=== PATIENT | male | born 1960 | race Caucasian/White ===

== ENCOUNTER 2020-09-07 21:42 | Inpatient (IN) | payer OTHER ==
[~2020-09-07] VITALS: Ht 182.9 cm; Wt 90.7 kg
[2020-09-07] MEDS ORDERED: SODIUM CHLOR 0.9% PF (SALINE LOCK) 10ML VIAL/SYR IV SCH (22:00)
[2020-09-07] MEDS ORDERED: ASPirin 325 MG TAB PO ONE (22:00)
[2020-09-07] MEDS ORDERED: ATORVASTATIN 20 MG TAB ONE (22:02)
[2020-09-07] MEDS ORDERED: ONDANSETRON HCL 4 MG/2 ML VIAL ONE (22:02)
[2020-09-07] MEDS ORDERED: HEPARIN SODIUM (PORCINE) 5000 UNITS/ML 1ML VIAL ONE (22:02)
[2020-09-07] MEDS ORDERED: MORPHINE SULF INJ 2 MG/ML SYRINGE 1ML ONE (22:03)
[2020-09-07] MEDS ORDERED: IOHEXOL 350 MG/ML 100ML IJ ONE (22:20)
[2020-09-07] MEDS ORDERED: LIDOCAINE 2%HCL (LOCAL ANESTH.) INJ 20ML MDV ONE (22:21)
[2020-09-07 22:23] LABS: Basophils # (auto) 0.1 10 ^3/uL (0-0.2); Basophils % (auto) 1.1 % (0.0-2.0); Eosinophils # (auto) 0.5 10 ^3/uL (0-0.8); Eosinophils % (auto) 5.4 % (0.0-7.0); Hematocrit 48.5 % (41.0-53.0); Lymphocytes # (auto) 3.5 10 ^3/uL (0.4-5.4); Lymphocytes % (auto) 34.6 % (10.0-50.0); Mean Corpuscular Hemoglobin 33.5 pg (28.0-32.0); Mean Corpuscular Hgb Conc. 33.1 g/dL (32.0-36.0); Mean Corpuscular Volume 101.3 fL (80.0-100.0); Monocytes # (auto) 1.4 10 ^3/uL (0-1.3); Monocytes % (auto) 14.1 % (0.0-12.0); Neutrophils # (auto) 4.5 10 ^3/uL (1.6-8.6); Neutrophils % (auto) 44.8 % (37.0-80.0); Nucleated Red Blood Cells % 0.2 %; Platelet Count (auto) 266 10^3/uL (140-450); Red Blood Cells 4.79 10^6/uL (4.5-5.90); Red Cell Distribution Width 12.7 % (11.8-14.3)
[2020-09-07] MEDS ORDERED: ATROPINE SULF 1 MG/10ml SYR ONE (22:30)
[2020-09-07] MEDS ORDERED: ANGIOMAX 250 MG VIAL IV ONE (22:30)
[2020-09-07] MEDS ORDERED: MIDAZOLAM HCL 1MG/1ML-2 ML VIAL ONE (22:30)
[2020-09-07] MEDS ORDERED: fentaNYL CITRATE 100 MCG/2 ML VL ONE (22:30)
[2020-09-07] MEDS ORDERED: SODIUM CHL 0.9% 50 ML ONE (22:31)
[2020-09-07 22:44] LABS: INR 0.97 (0.9-1.15); Partial Thromboplastin Time 23.3 sec (23.0-31.2)
[2020-09-07 22:46] LABS: Albumin 3.7 g/dL (3.4-5.0); Calcium 8.7 mg/dL (8.5-10.1); Magnesium 2.8 mg/dL (1.6-2.6); Potassium 4.3 mmol/L (3.5-5.1)
[2020-09-07 22:52] LABS: BUN/Creatinine Ratio 17.8; Bilirubin, Total 0.4 mg/dL (0.2-1.0); Total Protein 7.8 g/dL (6.4-8.2)
[2020-09-07] MEDS ORDERED: EPTIFIBATIDE INJ (2MG/ML) 10ML VIAL IV ONE (22:55)
[2020-09-07] MEDS ORDERED: niCARdipine 25 MG/10 ML VIAL IV ONE (22:55)
[2020-09-07] MEDS ORDERED: TICAGRELOR 90 MG TAB ONE (23:33)
[2020-09-08] MEDS ORDERED: HEPARIN 1,000 UNITS/ml 1ML VIAL IV ONE
[2020-09-08] MEDS ORDERED: ONDANSETRON HCL 4 MG/2 ML VIAL IV ONE
[2020-09-08] MEDS ORDERED: ATORVASTATIN 20 MG TAB PO ONE
[2020-09-08] MEDS ORDERED: MORPHINE SULF INJ 2 MG/ML SYRINGE 1ML IV ONE
[2020-09-08] MEDS ORDERED: HYDROcodone-ACET 5/325MG TAB PO PRN (00:15)
[2020-09-08] MEDS ORDERED: ONDANSETRON HCL 4 MG/2 ML VIAL IV PRN (00:15)
[2020-09-08] MEDS ORDERED: MORPHINE SULF INJ 2 MG/ML SYRINGE 1ML IV PRN (00:15)
[2020-09-08] MEDS ORDERED: MORPHINE SULFATE 4 MG/ML SYR/VIAL IV PRN (00:15)
[2020-09-08] MEDS ORDERED: NITROGLYCERIN 0.4 MG SL TAB SL PRN ×2 (00:15)
--- NOTE | 2020-09-08 00:17 | NUR ---
REPORT GIVEN TO BEVERLY OCONNELL IN FULL DETAIL. PT IN STABLE CONDITION FOR TRANSFER. WILL PREPARE PT AND CONTINUE TO MONITOR.
[2020-09-08] MEDS: ATORVASTATIN 20 MG TAB PO SCH ×2 (00:22→10:05)
[2020-09-08] MEDS: METOPROLOL TARTRATE 25 MG TAB PO SCH ×2 (00:22→10:07)
--- NOTE | 2020-09-08 00:50 | NUR ---
Telemetry admit from PACU MACARIO LONDON admitted to Telemetry unit after report received. Dressing to the left groin clean,dry, and intact. Patient to lay flat until 0300. Patient oriented to Karen Whitley, primary RN, unit, room, bed, and unit policies regarding patient care and visiting hours. Patient now on continuous telemetry monitoring, tele box # [id number] and telemetry reading on arrival to unit is sinus 84. Patient placed on bedside oxygen, weighed by bedscale and encouraged to call if they need something. All questions and concerns addressed, patient verbalized understanding. Note:
--- NOTE | 2020-09-08 03:25 | NUR ---
Patient ambulated to the toilet, voided freely. Care continued.
[2020-09-08 04:50] VITALS: BP 104/76
--- NOTE | 2020-09-08 06:15 | NUR ---
Patient complained of slight chest discomfort. EKG done. No other complains. [place] given for pain. Care continued.
[2020-09-08] MEDS: SODIUM CHLOR 0.9% PF (SALINE LOCK) 10ML VIAL/SYR IV SCH ×3 (06:25→21:36)
--- NOTE | 2020-09-08 07:00 | NUR ---
Pain relieved. Patient has no complains, no shortness of breath. Dressing to left groin clean,dry, and intact. Will give report to oncoming RN.
--- NOTE | 2020-09-08 07:30 | NUR ---
Opening Shift Note Upon entering room patient awake and alert. No signs of distress or pain noted. Respirations even and unlabored. Patient relaxed and calm. Instructed patient on the use of the call light PRN. Call light within reach. Bed locked and in lowest position with two side rails up. Will continue to monitor for changes.
--- NOTE | 2020-09-08 07:30 | NUR ---
Called color maker Dr. Munir Tejeda, updated with patient's status including but not limited to slight chest discomfort, critical troponin of >200 x 2. No new orders at this time. Report given to oncoming RN.
[2020-09-08] MEDS ORDERED: ATOR20TA50 PO (08:06)
[2020-09-08] MEDS ORDERED: ASPI81CH43 PO (08:06)
[2020-09-08] MEDS ORDERED: ATEN50TA PO (08:06)
[2020-09-08 09:00] VITALS: BP 129/86
[2020-09-08] MEDS: LISINOPRIL 5 MG TAB PO SCH (10:05)
[2020-09-08] MEDS: TICAGRELOR 90 MG TAB PO SCH ×2 (11:48→21:36)
[2020-09-08 13:53] VITALS: BP 133/80
[2020-09-08 16:26] VITALS: BP 132/91
--- NOTE | 2020-09-08 18:51 | NUR ---
PATIENT ROUNDS PATIENT RESTING IN BED WATCHING TELEVISION. NO S/S OF DISTRESS. WILL ENDORSE CARE TO HARDWARE MANAGER RN.
--- NOTE | 2020-09-08 19:35 | NUR ---
Opening Shift Note Assumed care of patient, awake and alert. No S/S of distress/SOB or pain. Insructed on POC and to call for assist PRN, will continue to monitor.
[2020-09-08 22:53] VITALS: BP 95/59
[2020-09-09 05:27] VITALS: BP 101/71
[2020-09-09] MEDS: SODIUM CHLOR 0.9% PF (SALINE LOCK) 10ML VIAL/SYR IV SCH ×2 (06:47→12:57)
[2020-09-09 06:56] LABS: Basophils # (auto) 0 10 ^3/uL (0-0.2); Eosinophils # (auto) 0 10 ^3/uL (0-0.8); Eosinophils % (auto) 0.2 % (0.0-7.0)
[2020-09-09 06:57] LABS: Basophils % (auto) 0.3 % (0.0-2.0); Hematocrit 46.1 % (41.0-53.0); Hemoglobin 15.7 g/dL (13.5-17.5); Lymphocytes # (auto) 0.9 10 ^3/uL (0.4-5.4); Lymphocytes % (auto) 9.3 % (10.0-50.0); Mean Corpuscular Hemoglobin 34.3 pg (28.0-32.0); Mean Corpuscular Hgb Conc. 34.1 g/dL (32.0-36.0); Mean Corpuscular Volume 100.6 fL (80.0-100.0); Monocytes # (auto) 1.5 10 ^3/uL (0-1.3); Monocytes % (auto) 14.6 % (0.0-12.0); Neutrophils # (auto) 7.5 10 ^3/uL (1.6-8.6); Neutrophils % (auto) 75.6 % (37.0-80.0); Platelet Count (auto) 167 10^3/uL (140-450); Red Blood Cells 4.58 10^6/uL (4.5-5.90); Red Cell Distribution Width 12.5 % (11.8-14.3)
[2020-09-09 07:10] LABS: Calcium 8.2 mg/dL (8.5-10.1)
--- NOTE | 2020-09-09 07:20 | NUR ---
Opening Shift Note Assumed care of patient, awake and alert. No S/S of distress, SOB. Patient reports chest pressure of 2-3/10, states it is feeling much better then yesterday, patient denies any pain medication at this time. MD is aware of the chest pressure. Respirations even and unlabored. Updated on POC and instructed to call for assistance as needed, patient verbalized understanding. Bed locked in lowest position, side rails up x2, call light within reach. Will continue to monitor for changes.
[2020-09-09 07:33] LABS: BUN/Creatinine Ratio 15.1
--- NOTE | 2020-09-09 07:45 | NUR ---
CRITICAL LAB VALUE, TROPONIN 81.8 MD Munir SANTANA PAGED TO UPDATE.
[2020-09-09 09:00] VITALS: BP_SYST 139
[2020-09-09] MEDS: ATORVASTATIN 20 MG TAB PO SCH (09:08)
[2020-09-09] MEDS: METOPROLOL TARTRATE 25 MG TAB PO SCH (09:08)
[2020-09-09] MEDS: LISINOPRIL 5 MG TAB PO SCH (09:08)
[2020-09-09] MEDS: TICAGRELOR 90 MG TAB PO SCH (09:08)
[2020-09-09] MEDS ORDERED: ASPirin 81 mg TAB PO SCH (10:00)
--- NOTE | 2020-09-09 12:50 | NUR ---
RUN OF VTACH PATIENT HAD AN 8 BEAT RUN OF V-TACH. NOTIFIED DR [place] SANTANA. RECEIVED NEW ORDERS. PATIENT TO RECEIVE 200MG PO AMIODARONE NOW AND OBSERVE FOR A FEW HOURS. PATIENT TO COME TO OFFICE TO MAINTENANCE OPERATOR PRESCRIPTION SLIP.
[2020-09-09 13:00] VITALS: BP 104/71
[2020-09-09] MEDS ORDERED: AMIODARONE HCL 200 MG TAB PO ONE (13:00)
[2020-09-09 17:00] VITALS: BP 109/71
--- NOTE | 2020-09-09 18:00 | NUR ---
DISCHARGE HOME Discharge instructions given as ordered. Encourage to follow up with [facility] as instructed. All questions and concerns addressed. Patient verbalized understanding. Medication reconciliation form completed and copy given to patient. IV removed with catheter intact, pressure dressing applied. Telemetry unit returned to ICU. Patient taken to vehicle via ambulation with all personal belongings, accompanied by staff. No distress noted at time of departure.
[2020-09-09] MEDS ORDERED: AMIODARONE HCL 200 MG TAB PO SCH (22:00)
== END 2020-09-09 18:00 | disposition home or self-care (01) | DRG 251 ==
LOC: EDBD 21:42 → ER 21:48 → CATH 1 22:24 → TELE-WESTW 22:25
PROVIDERS: ADMIT Specialist; ATTEND Specialist
PROC: 02703ZZ Dilation of Coronary Artery, One Artery, Percutaneous Approach (ICD-10-PCS; principal; 2020-09-07)
PROC: 02C03ZZ Extirpation of Matter from Coronary Artery, One Artery, Percutaneous Approach (ICD-10-PCS; 2020-09-07)
PROC: 4A023N7 Measurement of Cardiac Sampling and Pressure, Left Heart, Percutaneous Approach (ICD-10-PCS; 2020-09-07)
PROC: B2151ZZ Fluoroscopy of Left Heart using Low Osmolar Contrast (ICD-10-PCS; 2020-09-07)
PROC: B2111ZZ Fluoroscopy of Multiple Coronary Arteries using Low Osmolar Contrast (ICD-10-PCS; 2020-09-07)
PROC: B41F1ZZ Fluoroscopy of Right Lower Extremity Arteries using Low Osmolar Contrast (ICD-10-PCS; 2020-09-07)
PROC: B241ZZ3 Ultrasonography of Multiple Coronary Arteries, Intravascular (ICD-10-PCS; 2020-09-07)
DX: I21.09 ST elevation (STEMI) myocardial infarction involving other coronary artery of anterior wall (principal); I25.10 Atherosclerotic heart disease of native coronary artery without angina pectoris; I10 Essential (primary) hypertension; Z95.5 Presence of coronary angioplasty implant and graft; Z88.0 Allergy status to penicillin; Z82.49 Family history of ischemic heart disease and other diseases of the circulatory system
CPT/HCPCS: 36415; 71045; 80048; 80053; 80061; 83735; 84484; 85025; 85610; 85730; 93005; 93306; 96374; 96375; 99152; 99153; 99291; C1887; G0378; J2250; J2405

== ENCOUNTER 2023-04-04 03:40 | Inpatient (IN) | payer OTHER ==
[~2023-04-04] VITALS: Ht 185.4 cm; Wt 111.2 kg
[~2023-04-04 03:40] MED LIST: ASPI81CH43 PO; ATEN50TA PO; ATOR20TA50 PO
[2023-04-04 04:27] LABS: Basophils # (auto) 0.1 10 ^3/uL (0-0.2); Eosinophils # (auto) 0.6 10 ^3/uL (0-0.8); Eosinophils % (auto) 9.7 % (0.0-7.0); Lymphocytes # (auto) 1.5 10 ^3/uL (0.4-5.4); Monocytes # (auto) 0.7 10 ^3/uL (0-1.3); Neutrophils # (auto) 3.6 10 ^3/uL (1.6-8.6); Red Cell Distribution Width 12.4 % (11.8-14.3); White Blood Cell 6.5 10^3/uL (4.4-10.8)
[2023-04-04 04:29] LABS: Basophils % (auto) 1.5 % (0.0-2.0); Hematocrit 45.7 % (41.0-53.0); Lymphocytes % (auto) 23.1 % (10.0-50.0); Mean Corpuscular Hgb Conc. 34.9 g/dL (32.0-36.0); Mean Corpuscular Volume 100.1 fL (80.0-100.0); Monocytes % (auto) 10.3 % (0.0-12.0); Neutrophils % (auto) 55.4 % (37.0-80.0); Red Blood Cells 4.56 10^6/uL (4.5-5.90)
[2023-04-04] MEDS ORDERED: HEPARIN SODIUM (PORCINE) 5000 UNITS/ML 1ML VIAL IV ONE (04:30)
[2023-04-04 04:41] LABS: INR 1.02 (0.9-1.15); Partial Thromboplastin Time 27.6 SEC (24.5-34.5)
[2023-04-04 04:44] LABS: Albumin 3.8 g/dL (3.4-5.0); Calcium 8.2 mg/dL (8.5-10.1); Potassium 4.2 mmol/L (3.5-5.1)
[2023-04-04 04:47] LABS: BUN/Creatinine Ratio 16.5 (10.0-20.0); Bilirubin, Total 0.4 mg/dL (0.2-1.0); Total Protein 7.4 g/dL (6.4-8.2)
[2023-04-04] MEDS ORDERED: ROSU1TAB14 PO (05:14)
[2023-04-04] MEDS ORDERED: CARV25TA55 PO (05:14)
[2023-04-04] MEDS ORDERED: LOS25T PO (05:14)
[2023-04-04] MEDS ORDERED: MORPHINE SULFATE 4 MG/ML SYR/VIAL IV PRN (09:45)
[2023-04-04] MEDS ORDERED: ONDANSETRON HCL 4 MG/2 ML VIAL IV PRN (09:45)
[2023-04-04] MEDS ORDERED: NITROGLYCERIN 0.4 MG SL TAB SL PRN (09:45)
[2023-04-04] MEDS: ASPirin 81 mg TAB PO SCH (10:17)
[2023-04-04] MEDS: CARVEDILOL 12.5 MG TAB PO SCH ×2 (10:18→21:34)
[2023-04-04] MEDS: DOCUSATE SOD 100 MG CAP PO SCH (10:19)
[2023-04-04] MEDS: ENOXAPARIN SOD 100 MG/1 ML SYRINGE SC SCH ×2 (10:19→21:41)
[2023-04-04] MEDS: LOSARTAN POTASSIUM 25 MG TAB PO SCH (10:19)
[2023-04-04] MEDS: ATORVASTATIN 20 MG TAB PO SCH (21:35)
[2023-04-04 22:54] VITALS: BP 139/74
[2023-04-05 05:00] VITALS: BP 123/81
[2023-04-05 08:00] VITALS: BP 115/80
[2023-04-05 08:42] VITALS: BP 115/80
[2023-04-05] MEDS: ENOXAPARIN SOD 100 MG/1 ML SYRINGE SC SCH (09:54)
[2023-04-05] MEDS: ASPirin 81 mg TAB PO SCH (09:54)
[2023-04-05] MEDS: CARVEDILOL 12.5 MG TAB PO SCH ×2 (09:54→22:06)
[2023-04-05] MEDS: DOCUSATE SOD 100 MG CAP PO SCH (09:54)
[2023-04-05] MEDS: LOSARTAN POTASSIUM 25 MG TAB PO SCH (09:54)
[2023-04-05 13:00] VITALS: BP 139/92
[2023-04-05] MEDS ORDERED: POTASSIUM CHL 20 Meq TABLET PO ONE (14:00)
[2023-04-05] MEDS ORDERED: FUROSEMIDE 20 MG/2 ML VIAL IV ONE (14:00)
[2023-04-05 15:06] LABS: Urine WBC None Seen /hpf (0 - 3)
[2023-04-05 15:15] LABS: Urine Bacteria NONE SEEN /hpf (None Seen); Urine Blood Negative /uL (Negative); Urine Specific Gravity 1.005 (1.001-1.035)
[2023-04-05 17:00] VITALS: BP 122/88
[2023-04-05 22:00] VITALS: BP 109/61
[2023-04-05] MEDS: ATORVASTATIN 20 MG TAB PO SCH (22:06)
[2023-04-05] MEDS: ACETAMINOPHEN 325 MG TAB PO PRN (22:13)
[2023-04-06] MEDS: ACETAMINOPHEN 325 MG TAB PO PRN (03:05)
[2023-04-06 05:08] VITALS: BP 110/78
[2023-04-06 08:00] VITALS: BP 129/85
[2023-04-06 09:00] VITALS: BP 129/85
[2023-04-06] MEDS: LOSARTAN POTASSIUM 25 MG TAB PO SCH (09:59)
[2023-04-06] MEDS: CARVEDILOL 12.5 MG TAB PO SCH ×2 (09:59→21:11)
[2023-04-06] MEDS: ASPirin 81 mg TAB PO SCH (09:59)
[2023-04-06] MEDS: DOCUSATE SOD 100 MG CAP PO SCH (09:59)
[2023-04-06 12:33] VITALS: BP 127/85
[2023-04-06 15:31] LABS: Cholesterol 111 mg/dL (< 200)
[2023-04-06 15:34] LABS: HDL Cholesterol 47 mg/dL (40-59); LDL Cholesterol 54 mg/dL (< 100); Triglycerides 94 mg/dL (< 150)
[2023-04-06 16:35] VITALS: BP 115/75
[2023-04-06] MEDS: CLOPIDOGREL BISULFATE 75 MG TAB PO SCH (19:55)
[2023-04-06] MEDS: ATORVASTATIN 20 MG TAB PO SCH (21:12)
[2023-04-06 21:53] VITALS: BP 117/79
[2023-04-07 05:00] VITALS: BP 108/78
[2023-04-07 07:30] LABS: Potassium 3.9 mmol/L (3.5-5.1)
[2023-04-07 07:38] LABS: Albumin 3.3 g/dL (3.4-5.0); BUN/Creatinine Ratio 21.1 (10.0-20.0); Bilirubin, Total 0.6 mg/dL (0.2-1.0); Calcium 8.2 mg/dL (8.5-10.1); Magnesium 2.1 mg/dL (1.6-2.6); Total Protein 6.8 g/dL (6.4-8.2)
[2023-04-07 07:47] LABS: Basophils # (auto) 0.1 10 ^3/uL (0-0.2); Eosinophils # (auto) 0.5 10 ^3/uL (0-0.8); Lymphocytes # (auto) 1.2 10 ^3/uL (0.4-5.4); Mean Corpuscular Hemoglobin 34.6 pg (28.0-32.0); Mean Corpuscular Hgb Conc. 34.4 g/dL (32.0-36.0); Monocytes # (auto) 0.7 10 ^3/uL (0-1.3)
[2023-04-07 07:51] LABS: Basophils % (auto) 0.9 % (0.0-2.0); Hematocrit 45.1 % (41.0-53.0); Hemoglobin 15.5 g/dL (13.5-17.5); Lymphocytes % (auto) 18.7 % (10.0-50.0); Mean Corpuscular Volume 100.6 fL (80.0-100.0); Monocytes % (auto) 10.1 % (0.0-12.0); Neutrophils % (auto) 62.3 % (37.0-80.0); Nucleated Red Blood Cells % 0.1 %; Red Blood Cells 4.48 10^6/uL (4.5-5.90); Red Cell Distribution Width 12.4 % (11.8-14.3); White Blood Cell 6.4 10^3/uL (4.4-10.8)
[2023-04-07 08:00] VITALS: BP 116/86
[2023-04-07] MEDS: ASPirin 81 mg TAB PO SCH (09:27)
[2023-04-07] MEDS: DOCUSATE SOD 100 MG CAP PO SCH (09:27)
[2023-04-07] MEDS: LOSARTAN POTASSIUM 25 MG TAB PO SCH (09:27)
[2023-04-07] MEDS: CARVEDILOL 12.5 MG TAB PO SCH ×2 (09:27→21:18)
[2023-04-07] MEDS: CLOPIDOGREL BISULFATE 75 MG TAB PO SCH ×2 (09:28→09:49)
[2023-04-07] MEDS ORDERED: SODIUM CHLORIDE 0.9% 1,000 ML IV ONE (10:00)
[2023-04-07 12:00] VITALS: BP 110/75
[2023-04-07 16:00] VITALS: BP 113/72
[2023-04-07 20:00] VITALS: BP 132/86
[2023-04-07] MEDS: ATORVASTATIN 20 MG TAB PO SCH (21:19)
[2023-04-07 22:00] VITALS: BP 132/86
[2023-04-08] VITALS (8 sets, daily range): BP systolic 105–164; BP diastolic 46–114
[2023-04-08 07:07] LABS: Basophils # (auto) 0.1 10 ^3/uL (0-0.2); Eosinophils # (auto) 0.5 10 ^3/uL (0-0.8); Hemoglobin 14.7 g/dL (13.5-17.5); Neutrophils # (auto) 3.7 10 ^3/uL (1.6-8.6)
[2023-04-08 07:09] LABS: Basophils % (auto) 1.1 % (0.0-2.0); Eosinophils % (auto) 8.2 % (0.0-7.0); Hematocrit 43.2 % (41.0-53.0); Lymphocytes # (auto) 1.7 10 ^3/uL (0.4-5.4); Mean Corpuscular Hemoglobin 34.2 pg (28.0-32.0); Mean Corpuscular Hgb Conc. 34.1 g/dL (32.0-36.0); Mean Corpuscular Volume 100.5 fL (80.0-100.0); Monocytes # (auto) 0.6 10 ^3/uL (0-1.3); Monocytes % (auto) 9.5 % (0.0-12.0); Neutrophils % (auto) 56.2 % (37.0-80.0); Red Blood Cells 4.29 10^6/uL (4.5-5.90); Red Cell Distribution Width 12.3 % (11.8-14.3); White Blood Cell 6.7 10^3/uL (4.4-10.8)
[2023-04-08 07:46] LABS: Albumin 3.2 g/dL (3.4-5.0); BUN/Creatinine Ratio 19.3 (10.0-20.0); Bilirubin, Total 0.6 mg/dL (0.2-1.0); Magnesium 2.4 mg/dL (1.6-2.6); Total Protein 6.5 g/dL (6.4-8.2)
[2023-04-08] MEDS ORDERED: ADENOSINE 93 MG in GIVE UN-DILUTED 0 ML IV STA (08:32)
[2023-04-08] MEDS: ASPirin 81 mg TAB PO SCH (09:55)
[2023-04-08] MEDS: LOSARTAN POTASSIUM 25 MG TAB PO SCH (09:56)
[2023-04-08] MEDS: DOCUSATE SOD 100 MG CAP PO SCH (09:56)
[2023-04-08] MEDS: CLOPIDOGREL BISULFATE 75 MG TAB PO SCH (09:56)
[2023-04-08] MEDS: CARVEDILOL 12.5 MG TAB PO SCH ×2 (09:56→11:30)
== END 2023-04-08 18:39 | disposition home or self-care (01) | DRG 280 ==
LOC: ER 03:40 → TELE 09:43 → TELE-WESTW 22:19
PROVIDERS: ADMIT Nurse Practitioner Family; ATTEND Internal Medicine
DX: I21.4 Non-ST elevation (NSTEMI) myocardial infarction (principal); I50.43 Acute on chronic combined systolic (congestive) and diastolic (congestive) heart failure; E78.5 Hyperlipidemia, unspecified; E66.9 Obesity, unspecified; F41.9 Anxiety disorder, unspecified; I11.0 Hypertensive heart disease with heart failure; I25.10 Atherosclerotic heart disease of native coronary artery without angina pectoris; I25.2 Old myocardial infarction; Z82.49 Family history of ischemic heart disease and other diseases of the circulatory system; Z88.0 Allergy status to penicillin; Z80.0 Family history of malignant neoplasm of digestive organs; Z68.32 Body mass index [BMI] 32.0-32.9, adult
CPT/HCPCS: 36415; 71045; 78452; 80053; 80061; 81001; 83036; 83735; 83880; 84443; 84484; 85025; 85379; 85610; 85730; 93005; 93017; 93306; 96372; G0378; J0153